=== PATIENT | female | born 1965 | race Caucasian/White ===

== ENCOUNTER 2018-08-24 20:36 | Emergency (ER) | payer OTHER ==
[2018-08-24] MEDS: GUAIFENESIN/DM 5ML CUP PO (23:09)
[2018-08-24] MEDS: IBUPROFEN 600 MG TAB PO (23:13)
== END 2018-08-24 23:40 | disposition home or self-care (01) ==
LOC: FTE 23:40
DX: J02.9 Acute pharyngitis, unspecified (principal); J40 Bronchitis, not specified as acute or chronic; H61.23 Impacted cerumen, bilateral
CPT/HCPCS: 99283; Z7502